=== PATIENT | male | born 1995 | race Caucasian/White ===

== ENCOUNTER 2023-02-12 09:51 | Day surgery (SDC) | payer OTHER ==
[2023-02-11 11:56] VITALS: BMI 28.8
[2023-02-12] MEDS ORDERED: Oxymetazoline HCl 0.05% (30 ML BOT) ONE ×2 (10:21→12:19)
[2023-02-12] MEDS ORDERED: Bacitracin Zinc Ointment 30 gm TUBE ONE (12:19)
[2023-02-12] MEDS ORDERED: EPINEPHrine 1 MG/ML AMP ONE (12:19)
[2023-02-12] MEDS ORDERED: Lidocaine 1% (PF) 30 ML VIAL ONE (12:19)
[2023-02-12] MEDS ORDERED: KETAMINE 100 MG/ML (5ML VIAL) ONE (12:21)
[2023-02-12] MEDS ORDERED: Magnesium 5 GM/10 ML VIAL ONE (12:21)
[2023-02-12] MEDS ORDERED: Lidocaine 1% PF 5 ML VIAL ONE (13:00)
[2023-02-12] MEDS ORDERED: Dexamethasone 20 MG/5 ML VIAL ONE (13:00)
[2023-02-12] MEDS ORDERED: Ondansetron PF 4 MG/2 ML Vial ONE (13:00)
[2023-02-12] MEDS ORDERED: Succinylcholine Chloride 100 MG/5 ML SYRINGE FS ONE (13:00)
[2023-02-12] MEDS ORDERED: PROPOFOL 200 MG/20 ML VIAL ONE (13:00)
[2023-02-12] MEDS ORDERED: fentaNYL 50 mcg/mL 1 mL Vial ONE (13:51)
[2023-02-12] MEDS ORDERED: Ondansetron ODT 4 MG TAB ONE (15:33)
== END 2023-02-12 16:10 | disposition home or self-care (01) ==
LOC: SDC 09:51
PROVIDERS: ATTEND Otolaryngology Plastic Surgery within the Head & Neck
PROC: 099S8ZZ Drainage of Right Frontal Sinus, Via Natural or Artificial Opening Endoscopic (ICD-10-PCS; principal; 2023-02-12)
PROC: 095L0ZZ Destruction of Nasal Turbinate, Open Approach (ICD-10-PCS; principal; 2023-02-12)
PROC: 099Q8ZZ Drainage of Right Maxillary Sinus, Via Natural or Artificial Opening Endoscopic (ICD-10-PCS; principal; 2023-02-12)
PROC: 099R8ZZ Drainage of Left Maxillary Sinus, Via Natural or Artificial Opening Endoscopic (ICD-10-PCS; principal; 2023-02-12)
PROC: 09TV8ZZ Resection of Left Ethmoid Sinus, Via Natural or Artificial Opening Endoscopic (ICD-10-PCS; principal; 2023-02-12)
PROC: 09TU8ZZ Resection of Right Ethmoid Sinus, Via Natural or Artificial Opening Endoscopic (ICD-10-PCS; principal; 2023-02-12)
PROC: 09SM0ZZ Reposition Nasal Septum, Open Approach (ICD-10-PCS; principal; 2023-02-12)
PROC: 099T8ZZ Drainage of Left Frontal Sinus, Via Natural or Artificial Opening Endoscopic (ICD-10-PCS; principal; 2023-02-12)
DX: J32.4 Chronic pansinusitis (principal); J34.2 Deviated nasal septum; J34.3 Hypertrophy of nasal turbinates; J34.89 Other specified disorders of nose and nasal sinuses; E78.00 Pure hypercholesterolemia, unspecified; J30.1 Allergic rhinitis due to pollen; J30.81 Allergic rhinitis due to animal (cat) (dog) hair and dander; J30.89 Other allergic rhinitis; Z86.16 Personal history of COVID-19; Z79.899 Other long term (current) drug therapy
CPT/HCPCS: J0171; J2001; J3010; J3475; Q0162